=== PATIENT | male | born 1965 | race Caucasian/White ===

== ENCOUNTER 2023-11-26 07:59 | Emergency (ER) | payer BC, SELFPAY ==
[2023-11-26 08:05] VITALS: BP 139/100
--- NOTE | 2023-11-26 08:52 | ED.GENMED ---
History of Present Illness
General
Chief Complaint: Musculo-Skeletal Complaint
Time Seen by Provider: 11/26/23 08:18
History of Present Illness
History of Present Illness:
58-year-old male with history of coronary artery disease/myocardial infarction status post VLAD x 2 in diet-controlled diabetes presents to the emergency department for evaluation of chest discomfort radiating to the shoulder ongoing for the past 2
weeks. Pain is relatively consistent but does seem to worsen after periods of exertion. States that the pain improves after Tylenol. Describes it as feeling like indigestion. Also notes a similarity to his prior bout of pericarditis that
occurred in his postcardiac cath setting after OR. Pain is mild to moderate currently. Denies any fevers or chills. No recent URI type illnesses or vaccinations. Denies difficulty breathing, or leg swelling.
Past History
Past History
ED Past Medical History: Asthma, CAD, HTN, OR and Other (Migraine headaches, pericarditis, sleep apnea)
ED Past Surgical History: Appendectomy and Cardiac
Social History
Tobacco: Former smoker
Alcohol: Occasional
Drug: None
Personal:
Review of Systems
Review of Systems
Allergies reviewed?: Yes
All Other Systems: ROS reviewed and negative except as documented in HPI and ROS
Phy Exam
Physical Exam
Physical Exam:
GEN: Well appearing, NAD, WDWN
HEENT: Oral mucosa moist, no scleral icterus
Cardiac: Regular rate and rhythm, no murmurs
Lung: No respiratory distress, no tachypnea, lungs clear to auscultation bilaterally
MSK: No gross deformity or injuries
Skin: Good color, no pallor or jaundice, no rashes
Neuro: AO x3, moves all extremities freely
Psych: Calm, cooperative
Course
Orders/Labs/Results
Orders:
Orders
11/26/23 08:05
Electrocardiogram (*1) Urgent
Reason for Study: Other
Other Reason for Exam: left shoulder pain
EKG- Treatment ONCE
11/26/23 08:50
Nitroglycerin Sublingual [Nitrostat (Sublingual)] 0.4 mg SL NOW STA
CR Chest - 2 Views Urgent
Comment:
Reason For Exam: chest pain
11/26/23 09:18
Complete Blood Count/With Diff Urgent
Comprehensive Metabolic Panel Urgent
Troponin I Urgent
Abnormal Lab Results
11/26/23
09:18
Absolute Neuts (auto) 6.9 H 10^3/uL
(1.4-6.5)
Absolute Monos (auto) 1.1 H 10^3/uL
(0.1-0.6)
Lymphocytes % 18.0 L %
(20.5-51.1)
Monocytes % 11.5 H %
(1.7-9.3)
BUN 22 H mg/dl
(9-20)
Glucose 104 H mg/dl
(70-99)
11/26/23 09:18
11/26/23 09:18
Vital Signs
Initial and Last Documented VS:
Initial Vital Signs
Temp Pulse Resp BP Pulse Ox
98.9 F 57 16 139/100 98
11/26/23 08:05 11/26/23 08:05 11/26/23 08:05 11/26/23 08:05 11/26/23 08:05
Last Documented Vital Signs
Temp Pulse Resp BP Pulse Ox
98.9 F 66 22 119/72 96
11/26/23 08:05 11/26/23 10:15 11/26/23 10:15 11/26/23 10:00 11/26/23 10:15
MDM/Problems Addressed
MDM/Problems Addressed:
58-year-old presents with chest pain rating to the shoulders for the past 2 weeks. He denies any similarity to his past coronary angina however does state it feels comparable to his pericarditis in the past however has not had any recent coronary
interventions or any viral illnesses to suggest pericarditis. He denies any pleuritic or positional nature that would clearly indicate an acute pericarditis. He does note the symptoms seem to be worse after exertion but not during exertion. Had
cardiac catheterization in November 2022 for CAD with separate staged stents placed, had been on antiplatelet therapy up until recently and has been compliant with his meds. Ultimately his EKG is comparable to prior and his troponins are negative thus
is appropriate for him to be referred to the chest pain hotline for close cardiac follow-up. He is encouraged to return to the emergency department with any new or worsening symptoms as he may require further ischemic workup in the hospital.
Patient would prefer discharge and he is comfortable with this plan
Comment
Comment:
EKG independently interpreted by me shows a normal sinus rhythm at a rate of [address] changes concerning for ischemia
*Critical Care Note
Total Time (30-74mins, 75-104mins- exclusive of procedures): Not Applicable
ED Attending Note
-
Portions of this chart may have been created with voice recognition software.� Occasional wrong word or��sound alike� substitutions may have occurred due to the inherent limitations of voice recognition software.
Discharge Plan
Departure
Patient Disposition: Home (Routine Discharge)
Date of Disposition: 11/26/23
Time of Disposition: 10:30
Patient with high blood pressure during this ER visit?: No
Discharge Problem:
Chest pain
Instructions: Chest Pain DCA Follow Up
Prescriptions:
No Action
acetaminophen 500 mg Tablet
1,000 mg PO Q6H PRN (Reason: mild pain)
fluticasone propionate 50 mcg/actuation Vera,Suspension
1 spray INTRANASAL DAILY
eszopiclone 2 mg tablet
2 mg PO HS
Patient Comments:
11/08/2022: last filled 10/15/22, 30 tabs for 30 days from
melatonin 10 mg Tablet
5 - 10 mg PO HS
Brilinta 90 mg Tablet
90 mg PO BID Qty: 180 5RF
atorvastatin 80 mg Tablet
80 mg PO QPM Qty: 90 5RF
aspirin 81 mg Tablet,Chewable
81 mg PO DAILY Qty: 1 0RF
metoprolol succinate 25 mg Tablet Extended Release 24 Hr
12.5 mg PO DAILY Qty: 90 5RF
lisinopril 2.5 mg Tablet
2.5 mg PO DAILY Qty: 90 5RF
guaifenesin [Siltussin SA] 100 mg/5 mL Liquid
200 mg PO Q4HPRN PRN (Reason: cough) Qty: 0 0RF
Advair Diskus
1 dose inhalation DAILY
trazodone 50 mg Tablet
25 mg PO HS PRN (Reason: sleep)
albuterol
1 puff inhalation PRN PRN (Reason: SOB)
Referrals:
Betsey Arguello PA-C [Family Provider] -
Activity Restrictions/Additional Instructions:
You will be contacted by your enrollment representative within 24-48 hours for a follow up
If your pain worsens at any time, do not hesitate to return to the ER
I would highly advise you NOT to travel out of the area in order to facilitate close follow up with your enrollment representative
Interventions
Interventions:
*Risk Screen - Suicide Last Done: 11/26/23 09:09
*General Assessment Last Done: 11/26/23 09:09
*Neglect/Abuse Screening Last Done: 11/26/23 09:09
ED- Fall Risk Assessment Last Done: 11/26/23 10:41
*ED COVID-19 Vaccine History Last Done: 11/26/23 08:05
*Nursing Disposition Last Done: 11/26/23 10:41
ED-Musculoskeletal Assessment Last Done: 11/26/23 09:24
Discharge Date and Time
Discharge Date/Time: 11/26/23 10:42
Print Language: YI
[2023-11-26 09:08] VITALS: BP 115/84
[2023-11-26 09:09] VITALS: BMI 31.0
[2023-11-26] MEDS: NITROSTAT (SUBLINGUAL) 0.400000000000000022 MG SL (09:22)
[2023-11-26 09:30] LABS: % Basophils 0.4 % (0-2); % Eosinophils 0.4 % (0-6); % Immature Granulocytes 0.2 % (0-0.5); % Monocytes 11.5 % (1.7-9.3); % Neutrophils 69.5 % (42.2-75.2); Absolute Lymphocytes 1.8 10^3/uL (1.2-3.4); Absolute Monocytes 1.1 10^3/uL (0.1-0.6); Absolute Neutrophils 6.9 10^3/uL (1.4-6.5); Hemoglobin 14.7 g/dL (13.0-18.0); Mean Corp Hgb Conc. 34.2 g/dL (33.0-37.0); Mean Corpuscular Hgb 29.9 pg (27.0-31.0); Mean Corpuscular Volume 87.6 fL (80.0-94.0); Mean Platelet Volume 9.3 fL (7.4-10.4); Nucleated Red Blood Cells % 0 % (-); Platelet Count 302 10^3/uL (130-400); Red Blood Cell Count 4.91 10^6/uL (4.70-6.10); Red Cell Dist. Width 12.7 % (11.5-14.5)
[2023-11-26 09:54] LABS: Troponin I < 0.012 ng/ml
[2023-11-26 10:00] VITALS: BP 119/72
[2023-11-26 10:05] LABS: ALT (SGPT) 34 U/L (0-50); AST (SGOT) 32 U/L (17-59); Albumin 3.8 g/dl (3.5-5.0); Alkaline Phosphatase 65 U/L (38-126); Blood Urea Nitrogen 22 mg/dl (9-20); Calcium 8.9 mg/dl (8.4-10.2); Carbon Dioxide 27 mmol/L (22-30); Chloride 105 mmol/L (98-107); Estimated Creatinine Clearance 67 ml/min; Glucose 104 mg/dl (70-99); Potassium 4.9 mmol/L (3.5-5.1); Sodium 141 mmol/L (135-145); Total Bilirubin 0.8 mg/dl (0.2-1.3); Total Protein 6.4 g/dl (6.3-8.2); eGFR > 60.00
== END 2023-11-26 10:42 | disposition home or self-care (01) ==
LOC: EMR 07:59
PROVIDERS: Physician Assistant; EMERGENCY PHYSICIAN Emergency Medicine; FAMILY PHYSICIAN Physician Assistant Medical
DX: R07.89 Other chest pain (principal); I25.10 Atherosclerotic heart disease of native coronary artery without angina pectoris; I25.2 Old myocardial infarction; E11.9 Type 2 diabetes mellitus without complications; G47.30 Sleep apnea, unspecified; I10 Essential (primary) hypertension; J45.909 Unspecified asthma, uncomplicated; Z79.02 Long term (current) use of antithrombotics/antiplatelets; Z87.891 Personal history of nicotine dependence; Z90.49 Acquired absence of other specified parts of digestive tract; Z95.5 Presence of coronary angioplasty implant and graft
CPT/HCPCS: 99283; 71046; 80053; 84484; 85025; 93005

== ENCOUNTER → 2023-12-26 08:13 | Outpatient (REF) | payer BC, SELFPAY | LOC: HWRCS 08:13 | PROVIDERS: ATTENDING PHYSICIAN Nuclear Medicine Nuclear Cardiology; FAMILY PHYSICIAN Student in an Organized Health Care Education/Training Program | DX: I21.19 ST elevation (STEMI) myocardial infarction involving other coronary artery of inferior wall (principal); R06.02 Shortness of breath; I25.10 Atherosclerotic heart disease of native coronary artery without angina pectoris; R07.9 Chest pain, unspecified | CPT/HCPCS: 93306 ==

== ENCOUNTER → 2024-01-03 06:28 | Day surgery (SDC) | payer BC, SELFPAY | LOC: GI 06:28 | PROVIDERS: ATTENDING PHYSICIAN Internal Medicine Gastroenterology | DX: Z12.11 Encounter for screening for malignant neoplasm of colon (principal); K57.30 Diverticulosis of large intestine without perforation or abscess without bleeding; K64.8 Other hemorrhoids | CPT/HCPCS: G0121 ==

== ENCOUNTER → 2024-01-25 07:09 | Outpatient (REF) | payer BC, SELFPAY | LOC: DHCBC/DCA 07:09 | PROVIDERS: ATTENDING PHYSICIAN Nuclear Medicine Nuclear Cardiology; FAMILY PHYSICIAN Student in an Organized Health Care Education/Training Program | DX: R06.02 Shortness of breath (principal) | CPT/HCPCS: 78452; 93017; A9500 ==

== ENCOUNTER → 2024-12-09 09:19 | Outpatient (REF) | payer BC, SELFPAY | LOC: HWRCS 09:19 | PROVIDERS: ATTENDING PHYSICIAN Nuclear Medicine Nuclear Cardiology; FAMILY PHYSICIAN Student in an Organized Health Care Education/Training Program | DX: R00.1 Bradycardia, unspecified (principal); Z95.5 Presence of coronary angioplasty implant and graft; I21.19 ST elevation (STEMI) myocardial infarction involving other coronary artery of inferior wall; I25.5 Ischemic cardiomyopathy | CPT/HCPCS: 93306 ==